=== PATIENT | female | born 1995 | race Caucasian/White ===

== ENCOUNTER 2021-05-31 18:07 | Emergency (ER) | payer OTHER, MEDICAID ==
[~2021-05-31] VITALS: Ht 162.6 cm; Wt 69.4 kg
[2021-05-31] MEDS ORDERED: CENTANY30 GM TOP ×2 (19:12→19:13)
[2021-05-31] MEDS ORDERED: HYDROCODON-ACE1 EAC8 PO (19:16)
[2021-05-31 19:42] VITALS: BP 121/70
== END 2021-05-31 19:43 | disposition home or self-care (01) ==
LOC: M.ERS 18:07
DX: T22.111A Burn of first degree of right forearm, initial encounter (principal); T23.171A Burn of first degree of right wrist, initial encounter; X08.8XXA Exposure to other specified smoke, fire and flames, initial encounter; Y93.89 Activity, other specified; Y92.89 Other specified places as the place of occurrence of the external cause; Y99.8 Other external cause status